=== PATIENT | male | born 1985 | race Caucasian/White ===

== ENCOUNTER 2016-11-16 16:51 | Inpatient (IN) | payer BC ==
[~2016-11-16] VITALS: Ht 177.8 cm; Wt 68.9 kg
[2016-11-16] MEDS ORDERED: COMMUNICATION ORDER XX ONE (18:00)
[2016-11-16] MEDS ORDERED: LORazepam 2 MG/ML VIAL IVP PRN (18:00)
[2016-11-16 18:09] VITALS: BP 130/81; PULSE 110; RESP 20; TEMP 98.7; O2SAT 96
[2016-11-16 18:15] LABS: BASOPHILS % (AUTO) 0.5 % (0.0-2.0); EOSINOPHILS # (AUTO) 0.1 K/uL (0.0-0.4); EOSINOPHILS % (AUTO) 0.9 % (0.0-4.0); HEMATOCRIT 45.8 % (36-54); HEMOGLOBIN 15.3 g/dL (14.0-18.0); LYMPHOCYTES # (AUTO) 2.4 K/uL (1.0-5.5); LYMPHOCYTES % (AUTO) 33.1 % (20.5-51.5); MEAN CORPUSCULAR HEMOGLOBIN 30 pg (27-31); MEAN CORPUSCULAR HGB CONC 34 % (32-36); MEAN CORPUSCULAR VOLUME 88 fL (79.0-98.0); MONOCYTES # (AUTO) 0.4 K/uL (0.0-1.0); MONOCYTES % (AUTO) 5.5 % (1.7-9.3); NEUTROPHILS # (AUTO) 4.4 K/uL (1.8-7.7); PLATELET COUNT (AUTO) 243 K/uL (130-430); RED BLOOD CELL COUNT(AUTO) 5.18 MIL/uL (4.2-6.2); RED CELL DISTRIBUTION WIDTH 13.3 % (9.0-15.0); WHITE BLOOD COUNT (AUTO) 7.3 K/uL (4.8-10.8)
[2016-11-16] MEDS: D5/0.45 NS 1,000 ML IV SCH (18:23)
[2016-11-16 18:26] LABS: CALCIUM 8.5 mg/dL (8.4-11.0); CREATININE 0.95 mg/dL (0.55-1.30); POTASSIUM 3.6 mmol/L (3.5-5.1)
--- NOTE | 2016-11-16 18:28 | NUR ---
ADMISSION NOTE Patient admitted with diagnosis of dehydration and Nausea and Vomiitng . Patient is awake, alert, oriented X 4. Patient oriented to hospital room, call light, toileting, pain management and safety-teach back done. Personal belongings checked and Belongings List documented. Call light within reach.
[2016-11-16 18:30] LABS: ALBUMIN 4.3 g/dL (3.4-4.8); TOTAL BILIRUBIN 0.4 mg/dL (0.0-1.0); TOTAL PROTEIN, SERUM 7.7 g/dL (6.4-8.3)
[2016-11-16] MEDS ORDERED: THIAMINE HCL 100 MG/ML VIAL IM ONE (18:30)
--- NOTE | 2016-11-16 18:42 | NUR ---
CONSULTATION PAGED REASON FOR CONSULTATION:ETOH DEPENDENT WAS CONSULT CALL?Y PERSON WHO WAS NOTIFIED:PRASANTH CONSULTING PHYSICIAN: ,SAID MACHINE FUR CLEANER SPECIALTY:PSYCH CPNSULTANT PHONE NUMBER:[phone]
--- NOTE | 2016-11-16 19:30 | NUR ---
CHANGE OF SHIFT: pt. endorsed and already c/o a lot of things, pt. verbalizing he is not feeling good, something for the nausea , wants his Ativan to be increase and call the doctor. Dr. Del Castillo just walked in and checked and talk to pt. about plan of care. MD aware of all pt. request. informed pt. to call for help, call light within reach, informed pt. not to disconnect IV pump when going to restroom.
[2016-11-16 19:49] VITALS: BP 134/86; PULSE 115; RESP 20; TEMP 97.5; O2SAT 97
[2016-11-16] MEDS: MULTIVITAMINS TAB 1 TABLET PO SCH (20:00)
[2016-11-16] MEDS: FOLIC ACID 1 MG TABLET PO SCH (20:00)
[2016-11-16] MEDS: PANTOPRAZOLE SODIUM 40 MG/VIAL (PROTONIX) IVP SCH (20:00)
[2016-11-16] MEDS: SERTRALINE HCL 50 MG TABLET PO SCH (20:00)
--- NOTE | 2016-11-16 20:00 | NUR ---
NOTES: pt. left his room and went outside without telling staff. found pt. outside the hospital on smoking area and talking to someone on his cell phone, charge nurse Samantha quinones. pt. very anxious and verbalizing that he's been here all day and nothing has been done. tried to explain to pt. that orders need to verify before giving meds. pt. been transferred to room 112 A by himself. call light within reach.
--- NOTE | 2016-11-16 20:38 | NUR ---
paged paged for Dr Del Castillo, dialed . s/w Rosanne.
[2016-11-16] MEDS ORDERED: SERTRALINE HCL 50 MG TABLET PO ONE (20:45)
[2016-11-16] MEDS ORDERED: PANTOPRAZOLE SODIUM 40 MG/VIAL (PROTONIX) IVP ONE (20:45)
[2016-11-16] MEDS ORDERED: FOLIC ACID 1 MG TABLET PO ONE (20:45)
[2016-11-16] MEDS ORDERED: MULTIVITAMINS TAB 1 TABLET PO ONE (20:45)
[2016-11-16] MEDS: ONDANSETRON HCL 4 MG/2 ML VIAL IVP PRN (20:53)
[2016-11-16] MEDS ORDERED: chlordiazePOXIDE HCL 25 MG CAPSULE PO SCH ×2 (21:00→22:00)
--- NOTE | 2016-11-16 21:00 | NUR ---
NOTES: scheduled meds given and will give Ativan early and Librium per pt. request and persistence about his medications. also noted to be nauseated and medicated but wants to eat, pt. on clear liquid, informed pt. that MD needs to be called to change diet, pt. even called Dr. De La Cruz to let him know about his diet, saying that he has friends and family that are doctors.
[2016-11-16] MEDS: LORazepam 2 MG/ML VIAL IVP PRN (21:08)
--- NOTE | 2016-11-16 22:00 | NUR ---
NOTES: pt. sleeping when checked. IVF infusing.
[2016-11-17] VITALS (7 sets, daily range): BP systolic 116–140; BP diastolic 61–90; PULSE 90–108; RESP 16–18; TEMP 97.8–99.1; O2SAT 96–100
--- NOTE | 2016-11-17 | NUR ---
ROUNDS: pt. still asleep. in no acute distress.
--- NOTE | 2016-11-17 01:30 | NUR ---
NOTES: pt. awakened and wants something for sleep. wants food, and given sandwich and juice. informed pt. Ativan not due till 3 am. pt. wants to go out to smoke. charge nurse Samantha informed and have someone to go with pt.
[2016-11-17] MEDS: LORazepam 2 MG/ML VIAL IVP PRN ×4 (03:32→22:53)
--- NOTE | 2016-11-17 03:32 | NUR ---
NOTES: trying to go back to sleep, wants Ativan and given as ordered. IVF patent. VS checked.
[2016-11-17] MEDS: D5/0.45 NS 1,000 ML IV SCH (03:35)
--- NOTE | 2016-11-17 05:00 | NUR ---
ROUNDS: pt. was able to go to sleep after IV Ativan given. sleeping comfortably.
--- NOTE | 2016-11-17 06:00 | NUR ---
NOTES: pt. sleeping when checked.
[2016-11-17 06:43] LABS: BASOPHILS % (AUTO) 0.9 % (0.0-2.0); EOSINOPHILS # (AUTO) 0.1 K/uL (0.0-0.4); EOSINOPHILS % (AUTO) 2.5 % (0.0-4.0); HEMATOCRIT 40.2 % (36-54); HEMOGLOBIN 13.8 g/dL (14.0-18.0); LYMPHOCYTES # (AUTO) 2.2 K/uL (1.0-5.5); LYMPHOCYTES % (AUTO) 38.9 % (20.5-51.5); MEAN CORPUSCULAR HEMOGLOBIN 31 pg (27-31); MEAN CORPUSCULAR HGB CONC 34 % (32-36); MEAN CORPUSCULAR VOLUME 90 fL (79.0-98.0); MONOCYTES # (AUTO) 0.4 K/uL (0.0-1.0); MONOCYTES % (AUTO) 7.8 % (1.7-9.3); NEUTROPHILS # (AUTO) 2.8 K/uL (1.8-7.7); NEUTROPHILS % (AUTO) 49.9 % (40.0-70.0); PLATELET COUNT (AUTO) 210 K/uL (130-430); RED BLOOD CELL COUNT(AUTO) 4.45 MIL/uL (4.2-6.2); RED CELL DISTRIBUTION WIDTH 13.2 % (9.0-15.0); WHITE BLOOD COUNT (AUTO) 5.5 K/uL (4.8-10.8)
--- NOTE | 2016-11-17 06:59 | NUR ---
CLOSING NOTES: Pt. been waking up , dozing on and off and asking his Ativan, informed he could only get it every 6 hours as needed. due Librium given. IVF patent. for further assistance and observation.
[2016-11-17 07:08] LABS: ALBUMIN 3.5 g/dL (3.4-4.8); CALCIUM 8.1 mg/dL (8.4-11.0); CREATININE 0.83 mg/dL (0.55-1.30); POTASSIUM 3.8 mmol/L (3.5-5.1); TOTAL BILIRUBIN 0.7 mg/dL (0.0-1.0); TOTAL PROTEIN, SERUM 6.6 g/dL (6.4-8.3)
--- NOTE | 2016-11-17 07:25 | NUR ---
endorsed pt. to incoming shift with nurse Barboza. pt. sleeping.
--- NOTE | 2016-11-17 08:00 | NUR ---
Opening Note Report received from Andie GARDNER nurse. Patient is currently eating breakfast in bed. No signs of distress noted. call light is within reach. IV is on the LFA currently running D51/2NS@100ml/hr. Will continue to monitor.
--- NOTE | 2016-11-17 08:20 | NUR ---
X-ray Patient went to x-ray via wheelchair accompanied by x-ray tech.
[2016-11-17] MEDS: THIAMINE HCL 100 MG TABLET PO SCH ×2 (09:15→09:17)
[2016-11-17] MEDS: chlordiazePOXIDE HCL 25 MG CAPSULE PO PRN ×3 (09:15→19:27)
[2016-11-17] MEDS: MULTIVITAMINS TAB 1 TABLET PO SCH (09:17)
[2016-11-17] MEDS: SERTRALINE HCL 50 MG TABLET PO SCH (09:19)
[2016-11-17] MEDS: FOLIC ACID 1 MG TABLET PO SCH (09:20)
[2016-11-17] MEDS: PANTOPRAZOLE SODIUM 40 MG/VIAL (PROTONIX) IVP SCH (09:20)
--- NOTE | 2016-11-17 10:40 | NUR ---
Out to smoke Patient went out to smoke accompanied by MOVIE EDITOR.
--- NOTE | 2016-11-17 12:00 | NUR ---
Off unit Patient went to smoke accompanied by the CRACKER OFF.
--- NOTE | 2016-11-17 12:05 | NUR ---
MD Rounds Psych MD is speaking with the patient outside in the smoke area.
--- NOTE | 2016-11-17 13:50 | NUR ---
Off the unit Patient went out to smoke accompanied by the LEAD SIMULATION MODELING ENGINEER.
--- NOTE | 2016-11-17 14:25 | NUR ---
SALES DEVELOPER NOTE: Pt referred to Airborne Weapons Technical Manager by Charge Nurse, Iris, for substance abuse and mental health resources. Please refer to Psychosocial Assessment for further information.
--- NOTE | 2016-11-17 15:03 | NUR ---
Off unit Patient went outside to smoke accompanied by the REHANGER.
[2016-11-17] MEDS: ONDANSETRON HCL 4 MG/2 ML VIAL IVP PRN (15:09)
--- NOTE | 2016-11-17 16:05 | NUR ---
Rounds Patient's is at the bedside.
--- NOTE | 2016-11-17 17:00 | NUR ---
Off unit Patient went outside to smoke accompanied by the GREEN END MAN.
[2016-11-17] MEDS ORDERED: chlordiazePOXIDE HCL 25 MG CAPSULE PO ONE (19:15)
--- NOTE | 2016-11-17 19:15 | NUR ---
change of shift.pt.presents restless affect;pt.has requested the scheduling of ativan.pt.ambulating:presents self @nsg station. pt.prefers not to re-connect the iv fluids:po intake adequate.
--- NOTE | 2016-11-17 19:30 | NUR ---
pt.requesting to leave the unit to suleiman.i have accompanied the pt.to the outside patio.
--- NOTE | 2016-11-17 20:00 | NUR ---
pt.assessed.v/s assessed;values w/in normal limits. arrived:apprised me that he is to re-order the frequency of the librium:pt.had requested to change the frequency/dose of the ativan> did not re-order the change in frequency/dose of the ativan.i apprised the pt.[facility] w/in the pt's reach.
--- NOTE | 2016-11-17 21:00 | NUR ---
pt.assessed.pt.was to receive extra dose librium:25mg .pt.accompanied outside to smoke. Addendum: 11/18/16 at 0436 by Cb Cantu RN i have accompanied the pt.outside to smoke.
--- NOTE | 2016-11-17 22:00 | NUR ---
i have administered the extra-dose:librium:25mg no request @this hour.roxy spencer placed w/in the pt.reach.
--- NOTE | 2016-11-17 23:00 | NUR ---
ativan;2mg ivp administered.no request@this hour.call light w/in pt's reach.
[2016-11-17] MEDS: chlordiazePOXIDE HCL 25 MG CAPSULE PO SCH (23:57)
[2016-11-18] VITALS: BP 128/76; PULSE 69; RESP 16; TEMP 97.2; O2SAT 96
--- NOTE | 2016-11-18 | NUR ---
pt.assessed.i ahve administered the 0000:mid-night dose:librium:25mg.i inquired if the pt.presents requests.the pt. requested a sandwich.i have provided the snack.call aye w/in the pt's reach.
--- NOTE | 2016-11-18 02:00 | NUR ---
pt.assessed.pt.presents quiescent affect;calm,asleep.call light w/in pt's reach.
[2016-11-18] MEDS: chlordiazePOXIDE HCL 25 MG CAPSULE PO SCH ×3 (03:56→12:16)
[2016-11-18 04:00] VITALS: BP 120/66; PULSE 86; RESP 18; TEMP 99; O2SAT 96
--- NOTE | 2016-11-18 04:00 | NUR ---
pt.assessed.librium:0400 am dose administered.no request @this hour.call light w/in pt's reach.
--- NOTE | 2016-11-18 06:00 | NUR ---
pt.awakened.i apprised the pt.that i attempted to awaken him !0400am but pt.was unable to, awaken. pt.requesting the ativan:2mg ivp.i have administer the medication.
[2016-11-18] MEDS: LORazepam 2 MG/ML VIAL IVP PRN ×2 (06:19→12:21)
--- NOTE | 2016-11-18 08:00 | NUR ---
opening Note Report received from Cb JOSUE. Patient is anxious but in stable condition. IV is on the LFA 20g currently saline locked. No signs of distress noted. Call light is within reach. Bed is in low position. No signs of ETOH withdrawal note. Will continue to monitor.
[2016-11-18] MEDS: SERTRALINE HCL 50 MG TABLET PO SCH (08:28)
[2016-11-18] MEDS: THIAMINE HCL 100 MG TABLET PO SCH (08:28)
[2016-11-18] MEDS: PANTOPRAZOLE SODIUM 40 MG/VIAL (PROTONIX) IVP SCH (08:28)
[2016-11-18] MEDS: MULTIVITAMINS TAB 1 TABLET PO SCH (08:28)
[2016-11-18] MEDS: FOLIC ACID 1 MG TABLET PO SCH (08:28)
[2016-11-18] MEDS ORDERED: chlordiazePOXIDE HCL 25 MG CAPSULE PO SCH (10:00)
--- NOTE | 2016-11-18 10:30 | NUR ---
Rounds Patient went outside to smoke accompanied by staff.
[2016-11-18] MEDS ORDERED: LIB25 PO (11:27)
[2016-11-18] MEDS ORDERED: THIA100T13 PO (11:27)
[2016-11-18] MEDS ORDERED: PRO40 PO (11:27)
[2016-11-18] MEDS ORDERED: SERT50TA PO (11:28)
[2016-11-18 11:31] VITALS: BP 138/92; PULSE 89; RESP 19; TEMP 97.9; O2SAT 100
[2016-11-18 11:32] VITALS: BP 134/96; PULSE 73; RESP 19; TEMP 97.3; O2SAT 99
[2016-11-18 12:28] VITALS: BP 124/76; PULSE 92; RESP 18; TEMP 97.6
--- NOTE | 2016-11-18 12:45 | NUR ---
Spoke with Spoke with Dr. Del Castillo in the nurses station. stated it is ok to discharge patient. wrote prescription for medications.
--- NOTE | 2016-11-18 13:05 | NUR ---
Rounds All indicated medications were given to the patient. IV and ID band were removed. All transition of care and prescriptions were given. Patient stated that his will pick him up. Educated on the importance of not driving home after receiving medications. Patient verbalized understanding.
--- NOTE | 2016-11-18 13:15 | NUR ---
PATIENT PATIENT IS FOR DISCHARGE. PAT WAS GIVEN ATIVAN 2MG IVP LESS THAN AN HOUR. OBSERVED PT GETTING OUT OF THE ROOM WITH PAPERS FOR DISCHARGE AND PRESCRIPTION IN HAND. WHEN ASKED IF HIS RIDE ID HERE, HE SAID HE IS GOING TO WAIT OUTSIDE. WALKED WITH THE PATIENT OUT AND ASKED HIM IF HE HAS CAR KEYS, INFORMED HIM HE CANNOT DRIVE, PATIENT BECAME AGITATED AND PULLED PANTS DOWN IN THE HALLWAY. PT PROCEEDED TO WALK OUT THE HOSPITAL AND CONTINUE WALKING DOWN THE STREET. RN CALLED AND LEFT MESSAGE TO
== END 2016-11-18 13:15 | disposition home or self-care (01) | DRG 897 ==
LOC: SMU 16:59
PROVIDERS: ADMIT Internal Medicine; ATTEND Internal Medicine
DX: F10.239 Alcohol dependence with withdrawal, unspecified (principal); K29.20 Alcoholic gastritis without bleeding; F12.20 Cannabis dependence, uncomplicated; Y90.8 Blood alcohol level of 240 mg/100 ml or more; E86.0 Dehydration; F32.9 Major depressive disorder, single episode, unspecified; F17.210 Nicotine dependence, cigarettes, uncomplicated; Z83.3 Family history of diabetes mellitus; Z82.49 Family history of ischemic heart disease and other diseases of the circulatory system
CPT/HCPCS: 36415; 71020-TC; 80053; 83690-TC; 83735-TC; 85025; 93005; C9113; G0482; J2060; J2405; J3411